=== PATIENT | male | born 1970 | race Caucasian/White ===

== ENCOUNTER 2019-01-23 13:24 | Emergency (ER) | payer BC, MEDICAID ==
[~2019-01-23] VITALS: Ht 180.3 cm; Wt 111.1 kg
[2019-01-23] MEDS ORDERED: LISINOPRIL 20 MG TABLET PO ONE (15:30)
[2019-01-23 15:46] LABS: BASOPHILS # (AUTO) 0.05 x10^3/uL (0-0.1); BASOPHILS % (AUTO) 1 % (0-1); EOSINOPHILS # (AUTO) 0.21 x10^3/uL (0-0.4); EOSINOPHILS % (AUTO) 3 % (1-7); LYMPHOCYTES # (AUTO) 2.44 x10^3/uL (1-3.4); LYMPHOCYTES % (AUTO) 37 % (22-44); MD NO; MEAN CORPUSCULAR HEMOGLOBIN 30.5 pg (27.5-34.5); MEAN CORPUSCULAR HGB CONC 32.7 g/dL (33.2-36.2); MEAN CORPUSCULAR VOLUME 93.3 fL (81-97); MEAN PLATELET VOLUME 7.7 fL (7.4-10.4); MONOCYTES # (AUTO) 0.89 x10^3/uL (0.2-0.8); MONOCYTES % (AUTO) 14 % (2-9); NEUTROPHILS # (AUTO) 2.95 x10^3/uL (1.8-6.8); NEUTROPHILS % (AUTO) 45 % (42-75); PLATELET COUNT 275 x10^3/uL (130-400); RED BLOOD COUNT 5.05 x10^6/uL (4.38-5.82); RED CELL DISTRIBUTION WIDTH 12.8 % (9.4-14.8)
[2019-01-23 15:56] LABS: ALBUMIN 3.7 g/dL (3.4-5.0); ANION GAP 6 mmol/L (5-15); CALCIUM 9.1 mg/dL (8.5-10.1); CHLORIDE 107 mmol/L (98-107)
--- NOTE | 2019-01-23 16:06 | NUR ---
PT. IS A & O X 4 WITH C/O KURTZ PAIN AND HIGH BLOOD PRESSURE. PT. STATES HE RAN OUT OF HIS MEDICATION AND IS UNABLE TO GET HIS MEDS FILLED FOR 2 WEEKS. PUPILS ARE PINA. LUNGS ARE CTA. MM ARE PINK AND MOIST WITH PULSES +2 THROUGHOUT. CAP REFILL IS BRISK, LESS THAN 3 SECONDS. PT. IS RESTING WITH THE HOB ELEVATED GREATER THAN 30 DEGREES. SIDERAILS REMAIN UP X 2 WITH THE CALL LIGHT IN PLACE.
[2019-01-23] MEDS ORDERED: LISINOPRIL 20 MG TABLET ONE (16:22)
--- NOTE | 2019-01-23 16:27 | NUR ---
TASK RN: FIRST CONTACT WITH PT: Provided medication per EMAR. Pt connected to NIBP and continous pulse ox. NADN. No needs expressed. Call light within reach. Bedrail up for safety measures.
[2019-01-23 17:30] VITALS: BP 146/87
== END 2019-01-23 17:32 | disposition home or self-care (01) ==
LOC: ED 16:46
DX: R51 Headache (principal); I10 Essential (primary) hypertension; Z76.0 Encounter for issue of repeat prescription; Z88.0 Allergy status to penicillin
CPT/HCPCS: 36415; 80048; 82040; 85025; 93005; 99284